=== PATIENT | male | born 1955 | race Caucasian/White ===

== ENCOUNTER 2016-10-03 11:20 | Emergency (ER) | payer BC ==
[~2016-10-03] VITALS: Ht 182.9 cm; Wt 74.8 kg
--- NOTE | 2016-10-03 11:22 | NUR ---
Code stroke activated per Dr Ovidio bello.
--- NOTE | 2016-10-03 11:26 | NUR ---
Pt to CT with ACLS guidelines in place with wayne cherry and Sheree GIBBS.
--- NOTE | 2016-10-03 11:30 | NUR ---
Dr Nolan spoke with Dr Wiggins (neuro) via telephone.
--- NOTE | 2016-10-03 11:35 | NUR ---
Pt BIB [facility], reports pt was at work, co-workers noticed sudden weakness, pt turned pale, and started slurring his speech; IV 20g left hand [employer]. Pt placed on monitor, EKG -- given to , blood drawn by lab. Pt to CT at 1127.
[2016-10-03 11:39] LABS: BASOPHILS % (AUTO) 0.3 % (0.0-2.0); EOSINOPHILS # (AUTO) 0.2 K/uL (0.0-0.7); EOSINOPHILS % (AUTO) 2.3 % (0.0-7.0); HEMATOCRIT 34.5 % (36.7-47.1); HEMOGLOBIN 11.6 g/dL (12.5-16.3); LYMPHOCYTES # (AUTO) 2.6 K/uL (20.0-40.0); LYMPHOCYTES % (AUTO) 36.5 % (20.5-51.5); MEAN CORPUSCULAR HEMOGLOBIN 31.1 uug (23.8-33.4); MEAN CORPUSCULAR HGB CONC 34 g/dL (32.5-36.3); MEAN CORPUSCULAR VOLUME 92.5 fL (73.0-96.2); MONOCYTES # (AUTO) 0.5 K/uL (2.0-10.0); MONOCYTES % (AUTO) 7.1 % (0.0-11.0); NEUTROPHILS # (AUTO) 3.8 K/uL (1.8-8.9); NEUTROPHILS % (AUTO) 53.8 % (38.5-71.5); PLATELET COUNT (AUTO) 184 K/uL (152-348); RED BLOOD CELL COUNT(AUTO) 3.72 MIL/uL (4.06-5.63); RED CELL DISTRIBUTION WIDTH 12.8 % (12.1-16.2); WHITE BLOOD COUNT (AUTO) 7.1 K/uL (3.6-10.2)
--- NOTE | 2016-10-03 11:40 | NUR ---
Sosa in process by Dr Wiggins (neuro) via telecart.
[2016-10-03 11:46] LABS: CALCIUM 9.3 mg/dL (8.5-10.1); POTASSIUM 5.9 mmol/L (3.5-5.1)
[2016-10-03 11:52] LABS: ALBUMIN 3.8 g/dL (3.4-5.0); BILIRUBIN,DIRECT 0.1 mg/dL (0.0-0.2); BILIRUBIN,TOTAL 0.7 mg/dL (0.2-1.0); TOTAL PROTEIN, SERUM 7.7 g/dL (6.4-8.2)
[2016-10-03] MEDS ORDERED: LABETALOL 20 MG/4 ML VIAL IV ONE (11:57)
[2016-10-03] MEDS ORDERED: LABETALOL HCL 100 MG/20 ML VIAL IV ONE (12:00)
--- NOTE | 2016-10-03 12:00 | NUR ---
Pt signed consent for t-PA after speaking with Dr Nolan and Dr Wiggins (via telecart).
[2016-10-03 12:02] VITALS: BP 195/84
[2016-10-03] MEDS ORDERED: NICARDIPINE IN DEXTROSE,ISO-OS 200 ML IV ONE ×2 (12:04→12:15)
--- NOTE | 2016-10-03 12:04 | NUR ---
tpa double check/double sign w/ jesse cedeño.
--- NOTE | 2016-10-03 12:04 | NUR ---
TPA adm as ordered by Dr Nolan, prepared by pharmacist (Tony). Dose verified with pharmacist, Dr Nolan and Sheree GIBBS.
--- NOTE | 2016-10-03 12:04 | NUR ---
Shaunna aguiar in [facility] - 10/03/16 at 1324 by LAVONNE TPA adm as ordered by Dr Nolan, prepared by pharmist Gloria), dose verified with Dr Nolan and Sheree GIBBS.
--- NOTE | 2016-10-03 12:10 | NUR ---
Called [facility] for transfer request, spoke with Layne, requested information provided via telephone and facesheet faxed to [phone] per her request.
[2016-10-03] MEDS ORDERED: ALTEPLASE 100 MG VIAL IV ONE ×2 (12:15→12:16)
--- NOTE | 2016-10-03 12:30 | NUR ---
Pt reports slight, 2/10, frontal NOLASCO. Speaking very clearly now. Pt also states he remembered that he also had some slurred speech about 6 months ago for a short time. informed.
[2016-10-03 12:56] LABS: ETHANOL < 3 MG/DL (0-0)
[2016-10-03 12:57] LABS: ACETAMINOPHEN < 2.0 ug/mL (10-30)
--- NOTE | 2016-10-03 13:16 | NUR ---
Gave report and pt chart to [facility] RN.
--- NOTE | 2016-10-03 13:23 | NUR ---
Called report to BERNIE Waddell in ICU at [facility].
== END 2016-10-03 13:31 | disposition short-term general hospital (02) ==
LOC: ER 11:20
DX: I63.9 Cerebral infarction, unspecified (principal); E11.9 Type 2 diabetes mellitus without complications; I10 Essential (primary) hypertension
CPT/HCPCS: 36415; 70030-TC; 70450; 71010; 85025; 85730; 93005; A4663; G0480-TC; G6040-TC; J2997; J3490